=== PATIENT | male | born 1965 | race Caucasian/White ===

== ENCOUNTER 2017-07-10 14:07 | Emergency (ER) | payer BC ==
[~2017-07-10] VITALS: Ht 185.4 cm; Wt 97.6 kg
[~2017-07-10 14:07] MED LIST: KEFLEX500 MG PO; NORCO 5/3251 TABLET PO; OMEPRAZOLE40 M1 PO
[2017-07-10 14:55] LABS: HEMATOCRIT 49.7 % (38.0-50.0); MCH 30.8 PG (29.0-34.0); MCHC 35.4 G/DL (30.0-36.0); MCV 86.9 FL (86-99); MEAN PLAT.VOLUME 8.7 uM^3 (9.0-12.4); PLATELET COUNT 274 K/uL (156-360); RBC DIS.WIDTH-CV 12.5 % (11.8-14.6); RBC DIS.WIDTH-SD 39.4 % (39-53); RED BLOOD COUNT 5.72 M/uL (4.00-5.50)
[2017-07-10 15:08] LABS: CHLORIDE 104 mEq/L (99-109); POTASSIUM 4.2 mEq/L (3.7-5.4); SODIUM 141 mEq/L (136-147)
[2017-07-10 15:09] LABS: GLUCOSE 96 mg/dL (70-99)
[2017-07-10 15:11] LABS: ANION GAP 10 MEQ/L (2-14)
[2017-07-10 15:13] LABS: GFR ESTIMATE (CALCULATED) > 59 mL/min/ (58.99-99999)
[2017-07-10 15:14] LABS: UREA NITROGEN (BUN) 12 mg/dL (9-23)
[2017-07-10 16:58] LABS: TOTAL BILIRUBIN 1.2 mg/dL (0.0-1.0)
[2017-07-10 16:59] LABS: ALKALINE PHOSPHATASE 79 IU/L (3-129)
[2017-07-10 17:02] LABS: DIRECT BILIRUBIN 0.4 mg/dL (0.0-0.3)
[2017-07-10 17:03] LABS: LIPASE 26 U/L (1.0-51.0)
[2017-07-10 17:37] LABS: ADD MIUA? NO; BILIRUBIN NEGATIVE; BLOOD NEGATIVE; COLOR AMBER ((YELLOW)); GLUCOSE (STRIP) NEGATIVE; KETONES NEGATIVE; LEUKOCYTES NEGATIVE; NITRITE NEGATIVE; PROTEIN (STRIP) NEGATIVE; SPECIFIC GRAVITY 1.021 (1.000-1.030); UCUL ADDED? NO; UROBILINOGEN 0.2 MG/DL (0.2-1.0)
[2017-07-10 20:43] LABS: C DIFF TOXIN NEGATIVE (NEGATIVE)
[2017-07-10 20:44] LABS: PROBE CHECK PASS; SPECIMEN PROCESSING CONTROL PASS
[2017-07-10] MEDS ORDERED: FLAGYL500 MG PO (21:18)
[2017-07-10] MEDS ORDERED: CIPRO500 MG PO (21:18)
[2017-07-10] MEDS ORDERED: BENTYL20 MG PO (21:18)
[2017-07-10] MEDS ORDERED: ZOFRAN ODT8 MG PO (21:18)
[2017-07-10 21:32] VITALS: BP 125/68
[2017-07-11 11:35] LABS: HBSG INDEX 0.29
[2017-07-11 11:36] LABS: HPCA INDEX 0.29
[2017-07-11 11:37] LABS: ANTI-HEPATITIS A VIRUS (IGM) Nonreactive; ANTI-HEPATITIS B CORE (IGM) Nonreactive; HAV INDEX 0.11; HBC IgM INDEX 0.07
== END 2017-07-10 21:42 | disposition home or self-care (01) ==
LOC: EME 14:07
PROVIDERS: Physician Assistant
DX: R19.7 Diarrhea, unspecified (principal); R11.2 Nausea with vomiting, unspecified; M79.1 Myalgia; R53.83 Other fatigue; N20.0 Calculus of kidney
CPT/HCPCS: 74177; 80048; 80074; 80076; 81003; 83605; 83690; 85027; 87045; 87493; 87506; 99281; 99284; C9113; J2405; J7030; S0028